=== PATIENT | female | born 1980 | race Caucasian/White ===

== ENCOUNTER 2016-12-28 16:52 | Observation (INO) ==
[2016-12-28] MEDS ORDERED: *HR* Morphine 2 MG/ML SYRINGE IVP ONE (17:15)
[2016-12-28] MEDS ORDERED: 0.9 % Sodium Chloride 1,000 ML IVC ONE (17:15)
[2016-12-28] MEDS ORDERED: Ondansetron 4 MG/2 ML VIAL IVP ONE ×2 (17:15→19:39)
--- NOTE | 2016-12-28 17:24 | Emergency Department Note ---
Disposition Clinical Impression: Pyelonephritis, Acute kidney injury, Renal colic on right side Abdominal pain Qualifiers: Abdominal location: right lower quadrant Qualified Code(s): R10.31 - Right lower quadrant pain Hematuria Qualifiers: Hematuria type: unspecified type Qualified Code(s): R31.9 - Hematuria, unspecified Disposition: Admitted As Inpatient Condition: Fair Referrals: NO,PCP [Primary Care Provider] - Forms: ED Satisfaction Letter, Work/School Release Time of Disposition: 18:46 General Adult HPI - General Chief complaint: ED Abdominal Pain Stated complaint: ABD Pain Time Seen by Provider: 12/28/16 17:15 Source: patient Mode of arrival: private vehicle Limitations: no limitations - History of Present Illness Pain Scale: 8 - Related Data Home Medications Medication Instructions Recorded Confirmed No Known Home Drugs 09/22/16 09/22/16 Allergies Allergy/AdvReac Type Severity Reaction Status Date / Time prednisone Allergy See Verified 09/22/16 01:17 Comments Past Medical History - Past Medical History Medical history: Reports: no medical history Surgical history: Reports: non-contributory Psychiatric history: Reports: no psych history 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 history: Reports: endometriosis, ectopic , bilateral tubal ligation : 7 Para: 2 Ab: 5 - Social History Smoking Status: Former smoker Smokeless Tobacco Status: No Alcohol use: Reports: none Drug use: Reports: none Physical Exam - General Limitations: no limitations General appearance: alert Course Vital Signs Temperature 99.2 F 12/28/16 16:54 Pulse Rate 98 12/28/16 16:54 Respiratory Rate 16 12/28/16 16:54 Blood Pressure 154/114 12/28/16 16:54 O2 Sat by Pulse Oximetry 100 12/28/16 16:54 Temperature 99.2 F 12/28/16 16:54 Pulse Rate 98 12/28/16 16:54 Respiratory Rate 16 12/28/16 16:54 Blood Pressure 154/114 12/28/16 16:54 O2 Sat by Pulse Oximetry 100 12/28/16 16:54 Oxygen Delivery Oxygen Delivery Room Air Medical Decision Making - Medical Records Medical records reviewed: Yes I reviewed the patient's medical records. - Lab Data Lab results reviewed: Yes I reviewed the patient's lab results. Result diagrams: 12/28/16 17:20 12/28/16 17:20 Lab Results 12/28/16 12/28/16 12/28/16 Range/Units 17:20 17:20 17:20 WBC 17.3 H (4.3-11.1) K/mcL RBC 4.68 (3.82-4.97) M/mcL Hgb 13.4 (11.5-15.4) g/dL Hct 40.4 (35.3-44.9) % MCV 86.3 (83.0-100.0) fL MCH 28.6 (28.0-33.3) pg MCHC 33.2 (31.6-35.5) g/dL RDW 13.7 (11.5-14.5) % Plt Count 282 (140-400) K/mcL MPV 11.0 (9.4-12.4) fL Immature Gran % 0.4 (0-4) % Seg Neutrophils % 77.7 % Lymphocytes % 14.6 % Monocytes % 6.8 % Eosinophils % 0.4 % Basophils % 0.1 % Neutrophils # 13.4 H (1.6-8.9) K/mcL Lymphocytes # 2.5 (0.6-4.6) K/mcL Monocytes # 1.2 (0.0-1.3) K/mcL Eosinophils # 0.1 (0.0-0.6) K/mcL Basophils # 0.0 (0.0-0.2) K/mcL PT (9.4-12.1) Seconds INR APTT (26.0-36.0) Seconds Sodium 139 (136-145) mEq/L Potassium 3.4 L (3.5-4.5) mEq/L Chloride 105 (98-109) mEq/L Carbon Dioxide 24 (19-29) mEq/L BUN 20 (7-20) mg/dL Creatinine 1.24 H (0.57-1.11) mg/dL Est GFR ( Amer) 60 (> 60) Est GFR (Non-Af Amer) 49 L (> 60) BUN/Creatinine Ratio 16 (6-26) Glucose 125 H (70-99) mg/dL Calculated Osmolality 292 (280-300) Lactic Acid (0.5-2.2) mmol/L Calcium 9.5 (8.6-10.8) mg/dL Total Bilirubin 0.7 (0.2-1.2) mg/dL Direct Bilirubin 0.3 (0.0-0.5) mg/dL Indirect Bilirubin 0.4 (0.0-1.2) mg/dL AST 28 (5-34) Units/L ALT 25 (0-55) Units/L Alkaline Phosphatase 82 (38-126) Units/L Troponin I (0-0.03) ng/mL Serum Total Protein 7.4 (6.0-8.3) g/dL Albumin 4.0 (3.5-5.0) g/dL Globulin 3.4 (2.4-3.5) g/dL Albumin/Globulin Ratio 1.2 (1.1-2.2) Amylase 59 (25-125) Units/L Lipase 16 (8-78) Units/L Urine Color Yellow (Yellow) Urine Clarity Clear (Clear) Urine pH 5.5 (5.0-8.0) pH Units Ur Specific [place] 1.010 (1.010-1.025) Urine Protein Negative (Neg-Trace) mg/dL Urine Glucose (UA) Normal (Normal) mg/dL Urine Ketones Negative (Negative) mg/dL Urine Blood Moderate H (Negative) Urine Nitrite Negative (Negative) Urine Bilirubin Negative (Negative) Urine Urobilinogen Normal (Normal) mg/dL Ur Leukocyte Esterase Negative (Negative) Urine Microscopic RBC 0-3 (0-3) per hpf Urine Microscopic WBC 5-15 H (0-3) per hpf Ur Squamous Epith Cells Many H (None-Few) per lpf Urine Bacteria None Seen (None-Few) per hpf Hyaline Casts None Seen (None-Few) per lpf Ur Culture Indicated? YES A (NO) Urine Test (Negative) 12/28/16 12/28/16 12/28/16 Range/Units 17:20 17:20 17:20 WBC (4.3-11.1) K/mcL RBC (3.82-4.97) M/mcL Hgb (11.5-15.4) g/dL Hct (35.3-44.9) % MCV (83.0-100.0) fL MCH (28.0-33.3) pg MCHC (31.6-35.5) g/dL RDW (11.5-14.5) % Plt Count (140-400) K/mcL MPV (9.4-12.4) fL Immature Gran % (0-4) % Seg Neutrophils % % Lymphocytes % % Monocytes % % Eosinophils % % Basophils % % Neutrophils # (1.6-8.9) K/mcL Lymphocytes # (0.6-4.6) K/mcL Monocytes # (0.0-1.3) K/mcL Eosinophils # (0.0-0.6) K/mcL Basophils # (0.0-0.2) K/mcL PT (9.4-12.1) Seconds INR APTT (26.0-36.0) Seconds Sodium (136-145) mEq/L Potassium (3.5-4.5) mEq/L Chloride (98-109) mEq/L Carbon Dioxide (19-29) mEq/L BUN (7-20) mg/dL Creatinine (0.57-1.11) mg/dL Est GFR ( Amer) (> 60) Est GFR (Non-Af Amer) (> 60) BUN/Creatinine Ratio (6-26) Glucose (70-99) mg/dL Calculated Osmolality (280-300) Lactic Acid 1.0 (0.5-2.2) mmol/L Calcium (8.6-10.8) mg/dL Total Bilirubin (0.2-1.2) mg/dL Direct Bilirubin (0.0-0.5) mg/dL Indirect Bilirubin (0.0-1.2) mg/dL AST (5-34) Units/L ALT (0-55) Units/L Alkaline Phosphatase (38-126) Units/L Troponin I 0.01 (0-0.03) ng/mL Serum Total Protein (6.0-8.3) g/dL Albumin (3.5-5.0) g/dL Globulin (2.4-3.5) g/dL Albumin/Globulin Ratio (1.1-2.2) Amylase (25-125) Units/L Lipase (8-78) Units/L Urine Color (Yellow) Urine Clarity (Clear) Urine pH (5.0-8.0) pH Units Ur Specific [place] (1.010-1.025) Urine Protein (Neg-Trace) mg/dL Urine Glucose (UA) (Normal) mg/dL Urine Ketones (Negative) mg/dL Urine Blood (Negative) Urine Nitrite (Negative) Urine Bilirubin (Negative) Urine Urobilinogen (Normal) mg/dL Ur Leukocyte Esterase (Negative) Urine Microscopic RBC (0-3) per hpf Urine Microscopic WBC (0-3) per hpf Ur Squamous Epith Cells (None-Few) per lpf Urine Bacteria (None-Few) per hpf Hyaline Casts (None-Few) per lpf Ur Culture Indicated? (NO) Urine Test Negative (Negative) 12/28/16 Range/Units 17:31 WBC (4.3-11.1) K/mcL RBC (3.82-4.97) M/mcL Hgb (11.5-15.4) g/dL Hct (35.3-44.9) % MCV (83.0-100.0) fL MCH (28.0-33.3) pg MCHC (31.6-35.5) g/dL RDW (11.5-14.5) % Plt Count (140-400) K/mcL MPV (9.4-12.4) fL Immature Gran % (0-4) % Seg Neutrophils % % Lymphocytes % % Monocytes % % Eosinophils % % Basophils % % Neutrophils # (1.6-8.9) K/mcL Lymphocytes # (0.6-4.6) K/mcL Monocytes # (0.0-1.3) K/mcL Eosinophils # (0.0-0.6) K/mcL Basophils # (0.0-0.2) K/mcL PT 11.5 (9.4-12.1) Seconds INR 1.1 APTT 30.2 (26.0-36.0) Seconds Sodium (136-145) mEq/L Potassium (3.5-4.5) mEq/L Chloride (98-109) mEq/L Carbon Dioxide (19-29) mEq/L BUN (7-20) mg/dL Creatinine (0.57-1.11) mg/dL Est GFR ( Amer) (> 60) Est GFR (Non-Af Amer) (> 60) BUN/Creatinine Ratio (6-26) Glucose (70-99) mg/dL Calculated Osmolality (280-300) Lactic Acid (0.5-2.2) mmol/L Calcium (8.6-10.8) mg/dL Total Bilirubin (0.2-1.2) mg/dL Direct Bilirubin (0.0-0.5) mg/dL Indirect Bilirubin (0.0-1.2) mg/dL AST (5-34) Units/L ALT (0-55) Units/L Alkaline Phosphatase (38-126) Units/L Troponin I (0-0.03) ng/mL Serum Total Protein (6.0-8.3) g/dL Albumin (3.5-5.0) g/dL Globulin (2.4-3.5) g/dL Albumin/Globulin Ratio (1.1-2.2) Amylase (25-125) Units/L Lipase (8-78) Units/L Urine Color (Yellow) Urine Clarity (Clear) Urine pH (5.0-8.0) pH Units Ur Specific [place] (1.010-1.025) Urine Protein (Neg-Trace) mg/dL Urine Glucose (UA) (Normal) mg/dL Urine Ketones (Negative) mg/dL Urine Blood (Negative) Urine Nitrite (Negative) Urine Bilirubin (Negative) Urine Urobilinogen (Normal) mg/dL Ur Leukocyte Esterase (Negative) Urine Microscopic RBC (0-3) per hpf Urine Microscopic WBC (0-3) per hpf Ur Squamous Epith Cells (None-Few) per lpf Urine Bacteria (None-Few) per hpf Hyaline Casts (None-Few) per lpf Ur Culture Indicated? (NO) Urine Test (Negative) - Radiology Data Radiology results reviewed: Yes I reviewed the patient's radiology results. Attestation Statement - Attestation Attestation: I examined this patient and my medical decision-making was reviewed with the Resident Physician. I agree with the documented findings, disposition and treatment plan as described except to the extent set forth below. Face to face time provided Patient complains of right lower abdominal pain. Mildly tender on exam without guarding or rebound. CT scan abd/pelvis ordered by the mid-level provider 18:45: Discussed CT and lab findings with Dr. Gore, urology on-call. He recommended antibiotics, IV fluids and admission in case this represents early pyelonephritis. accepts
--- NOTE | 2016-12-28 17:24 | Emergency Department Note ---
Disposition Clinical Impression: Abdominal pain Disposition: Still a Patient Condition: Fair Referrals: NO,PCP [Primary Care Provider] - Forms: Work/School Release, ED Satisfaction Letter Time of Disposition: 17:30 Abdominal Pain HPI - General Chief Complaint: ED Abdominal Pain Stated Complaint: ABD Pain Time Seen by Provider: 12/28/16 17:15 Source: patient Mode of arrival: private vehicle Limitations: no limitations Nursing Notes Reviewed: Yes Vital Signs Reviewed: Yes - History of Present Illness HPI Narrative: 36-year-old female patient presents to the emergency department with abdominal pain. Patient states that she has had intermittent abdominal pain for the last 12 hours. She denies any fever, chills or vomiting, however states that she has had some nausea. She denies any constipation. She denies any urinary complaints. Her abdominal pain is diffuse. She denies any chest pain, shortness of breath, dizziness, lightheadedness. She denies any vaginal discharge or bleeding. Her only known drug allergies to prednisone. Her surgical history consists of only gallbladder removal. She has no additional complaints or concerns. Pt Subjective Complaint: abdominal pain Onset (ago): hour(s) (12) Location: diffuse Pain Severity: severe Pain Scale: 8 Radiation: none Migration to: no migration Improves with: nothing Worsens with: nothing Associated symptoms: Reports: denies other symptoms, nausea. Denies: vomiting, diarrhea, fever, chills, constipation, dysuria, hematemesis - Related Data Home Medications Medication Instructions Recorded Confirmed No Known Home Drugs 09/22/16 09/22/16 Allergies Allergy/AdvReac Type Severity Reaction Status Date / Time prednisone Allergy See Verified 09/22/16 01:17 Comments All systems ED: reviewed and negative except as stated. Constitutional: Denies: fever, chills Cardiovascular: Denies: chest pain Respiratory: Denies: cough, dyspnea, wheezes Gastrointestinal: Reports: abdominal pain, nausea. Denies: vomiting, diarrhea, constipation, hematemesis, melena Musculoskeletal: Reports: back pain. 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 history: Reports: endometriosis, ectopic , bilateral tubal ligation : 7 Para: 2 A: 5 Psychiatric history: Reports: no psych history - Social History Smoking status: Former smoker Alcohol use: Reports: none Drug use: Reports: none Physical Exam - General Limitations: no limitations General appearance: alert, in no apparent distress - Head Head exam: atraumatic, normocephalic, normal inspection - Eye Eye exam: Present: normal appearance, PERRL - Neck Neck exam: Present: normal inspection, full ROM, trachea midline - Chest Chest inspection: Present: normal inspection, symmetric chest wall rise - Respiratory Respiratory exam: Present: normal lung sounds bilaterally. Absent: respiratory distress - Cardiovascular Cardiovascular exam: Present: regular rate, normal rhythm, normal heart sounds - Abdominal Exam Abdominal exam: Present: soft, tenderness, guarding, normal bowel sounds, tenderness at McBurney's Point. Absent: distention, rebound, rigidity Abdominal tenderness: Present: RLQ - Extremities Exam Extremities exam: Present: normal inspection, full ROM. Absent: tenderness, pedal edema - Expanded Lower Extremity Exam Hip/Pelvis exam: Present: normal inspection, full ROM Upper leg exam: Present: normal inspection, full ROM - Back Exam Back exam: Present: normal inspection, full ROM. Absent: tenderness - Neurological Exam Neurological exam: Present: alert, oriented X3 - Psychiatric Psychiatric exam: Present: normal affect, normal mood - Skin Skin exam: Present: warm, dry, intact, normal color Course Course Narrative: Patient's labs are pending. CT of the abdomen and pelvis pending. Urinalysis pending. Patient signed out to Jameson Casas PA-C at 1800. Vital Signs Temperature 99.2 F 12/28/16 16:54 Pulse Rate 98 12/28/16 16:54 Respiratory Rate 16 12/28/16 16:54 Blood Pressure 154/114 12/28/16 16:54 O2 Sat by Pulse Oximetry 100 12/28/16 16:54 Temperature 99.2 F 12/28/16 16:54 Pulse Rate 98 12/28/16 16:54 Respiratory Rate 16 12/28/16 16:54 Blood Pressure 154/114 12/28/16 16:54 O2 Sat by Pulse Oximetry 100 12/28/16 16:54 Oxygen Delivery Oxygen Delivery Room Air
[2016-12-28 17:31] LABS: Basophils % 0.1 %; Eosinophils # 0.1 K/mcL (0.0-0.6); Eosinophils % 0.4 %; Hematocrit 40.4 % (35.3-44.9); Hemoglobin 13.4 g/dL (11.5-15.4); Immature Granulocytes % 0.4 % (0-4); Lymphocytes # 2.5 K/mcL (0.6-4.6); Lymphocytes % 14.6 %; Mean Corpuscular HGB Conc 33.2 g/dL (31.6-35.5); Mean Corpuscular Hemoglobin 28.6 pg (28.0-33.3); Mean Corpuscular Volume 86.3 fL (83.0-100.0); Monocytes # 1.2 K/mcL (0.0-1.3); Monocytes % 6.8 %; Neutrophils # 13.4 K/mcL (1.6-8.9); Platelet Count 282 K/mcL (140-400); Red Blood Count 4.68 M/mcL (3.82-4.97); Red Cell Distribution Width 13.7 % (11.5-14.5); Segmented Neutrophils % 77.7 %
[2016-12-28 17:34] LABS: Bilirubin,Urine Negative (Negative); Blood,Urine Moderate (Negative); Clarity,Urine Clear (Clear); Color,Urine Yellow (Yellow); Glucose,Urine (UA) Normal (Normal); Ketones,Urine Negative (Negative); Leukocyte Esterase,Urine Negative (Negative); Nitrite,Urine Negative (Negative); PH,Urine 5.5 pH Units (5.0-8.0); Protein,Urine Negative (Neg-Trace); Urobilinogen,Urine Normal (Normal)
[2016-12-28 17:37] LABS: Bacteria,Urine None Seen per hpf (None-Few); Hyaline Casts,Urine None Seen per lpf (None-Few); RBC,Urine 0-3 per hpf (0-3); Squamous Epithelial Cell,Urine Many per lpf (None-Few)
[2016-12-28 17:43] LABS: INR 1.1; Prothrombin Time 11.5 Seconds (9.4-12.1)
[2016-12-28 17:46] LABS: Activated Partial Thrombo Time 30.2 Seconds (26.0-36.0)
[2016-12-28 17:49] LABS: Albumin/Globulin Ratio 1.2 (1.1-2.2); Bilirubin,Direct 0.3 mg/dL (0.0-0.5); Bilirubin,Indirect 0.4 mg/dL (0.0-1.2); Bilirubin,Total 0.7 mg/dL (0.2-1.2); Calcium 9.5 mg/dL (8.6-10.8); Globulin 3.4 g/dL (2.4-3.5); Potassium 3.4 mEq/L (3.5-4.5); Total Protein 7.4 g/dL (6.0-8.3)
[2016-12-28] MEDS ORDERED: *HR* HYDROmorphone (PF) 1 MG/ML SYRINGE IVP ONE (18:45)
[2016-12-28] MEDS ORDERED: Naloxone 0.4 MG/ML INJ IVP PRN (19:07)
--- NOTE | 2016-12-28 19:29 | Internal Med History&Physical ---
Date of Encounter: 12/28/16 Time of Encounter: 19:15 Assessment and Plan (1) Pyelonephritis Current visit: Yes Status: Acute Patient without dysuria, however CT shows perinephric stranding bilaterally, suggesting pyelo rather than passed stone. ED discussed case with urology s iron worker who recommended antibiotic treatment for pyelonephritis and monitoring for improvement. - Continue IV ceftriaxone, started in ED - Pain control with percocet PRN and PRN IV dilaudid - IV fluid resuscitation - Urine and blood cultures pending (2) Acute kidney injury Current visit: Yes Status: Acute Mild, Creatinine 1.24, up from baseline of 0.87. Likely prerenal etiology secondary to dehydration, vomiting, etc - IV fluids initiated in ED, will continue - Check creatinine in AM - avoid nephrotoxic agents. Internal Medicine - H&P: HPI Chief complaint: Right flank pain, vomiting Admitted From: Emergency Dept Plans for Post Hospital Care: Home History of present illness: Ms. Nagy is a 36 year old female without significant medical history who presents with right sided flank pain and vomiting which began this morning around 0430. She states that she was awake because of a migraine and then had sudden right-sided flank pain and vomiting. She was sweaty but did not take her temperature. Throughout the day her pain worsened and she continued to vomit so she came to the ED for further evaluation. In the ED a CT was performed which showed bilateral perinephric stranding (right worse than left). She denies dysuria, urinary frequency or urgency. She has not had renal stones before. She denies chest pain or shortness of breath. She does endorse some pain relief from the dilaudid she received in the ED but continues to have significant right -sided flank pain radiating around to the right groin. Past Med Surg Social Fam HX - Past Medical History Source: patient Medical history: no medical history Psychiatric history: no psych history - Past Surgical History Surgical History: cholecystectomy, other (mulitple knee surgeries (right), laparoscopy for ectopic and endometriosis, section. ) - Social History Smoking Status: Former smoker Smokeless Tobacco Status: No Alcohol use: none Drug use: marijuana (smokes marijana several times per month) Occupational status: unemployed Internal Medicine - H&P: Meds No Known Home Drugs 09/22/16 [History] Allergies prednisone Allergy (Verified 09/22/16 01:17) See Comments "heart goes crazy" All Systems PM: A 10-system review of systems was performed and is negative for pertinent findings except as documented above in the HPI. - Constitutional Constitutional: chills, excessive sweating, no weight gain, no weight loss - Cardiovascular Cardiovascular ROS IM: no diaphoresis - Respiratory Respiratory: no cough, no dyspnea - Gastrointestinal Gastrointestinal: nausea, vomiting, no diarrhea - Neurological Neurological ROS: no abnormal speech, no confusion, no memory loss - Psychiatric Psychiatric: panic attacks - Hematologic/Lymphatic Hematologic/Lymphatic: no easy bruising - Constitutional Vitals: Temp Pulse Resp BP Pulse Ox 99.2 F 98 16 154/114 100 12/28/16 16:54 12/28/16 16:54 12/28/16 16:54 12/28/16 16:54 12/28/16 16:54 General appearance: Present: A&O X 3, no acute distress - Head Head exam: Present: atraumatic - Eye Eye exam: Present: EOMI, sclera anicteric - ENT ENT exam: Present: mucous membranes moist - Neck Neck exam general surgery: Present: supple - Respiratory Respiratory exam: Present: CTAB - Cardiovascular Cardiovascular exam: Present: RRR. Absent: diastolic murmur, gallop, rubs, systolic murmur - GI/Abdominal GI/Abdominal exam: Present: normal bowel sounds, soft. Absent: distended, tenderness - Extremities Exam Extremities exam: Absent: pedal edema - Back Exam Back exam: Present: CVA tenderness (R). Absent: CVA tenderness (L) - Neurological Exam Neurological exam: Present: no focal deficits - Psychiatric Psychiatric exam: Present: normal affect, normal mood - Skin Skin exam: Absent: rash Internal Med - H&P Results - Labs CBC & Chem 7: 12/28/16 17:20 12/28/16 17:20 - Diagnostic Studies CT scan - abdomen Additional comments: cc: David Ferreira; Armand Man; PCP NO; ~ EXAMINATION: CT OF THE ABDOMEN AND PELVIS WITHOUT CONTRAST 12/28/2016 6:19 pm TECHNIQUE: CT of the abdomen and pelvis was performed without the administration of intravenous contrast. Multiplanar reformatted images are provided for review. Dose modulation, iterative reconstruction, and/or weight based adjustment of the mA/kV was utilized to reduce the radiation dose to as low as reasonably achievable. COMPARISON: None HISTORY: abdominal pain Acute right lower quadrant pain, low back pain FINDINGS: Lower Chest: Limited imaging of the lung bases is grossly unremarkable in appearance. No free air noted within the abdomen or pelvis. Organs: Patient is status post cholecystectomy. Limited noncontrast imaging of the liver, spleen, adrenal glands and pancreas are unremarkable in appearance. There is perinephric stranding noted on the right kidney and to a lesser degree the left kidney. No evidence of obstructive uropathy is noted. No definite stone noted along the visualized or expected course of the ureters. GI/Bowel: Stomach and the small bowel are grossly unremarkable in appearance. The appendix is visualized and appears normal. Noncontrast imaging of the colon is unremarkable in appearance. Pelvis: A 16 mm cystic structure noted in the left side of the labia majora, smaller cystic structure noted on the right findings likely related to benign cyst. The uterus, ovaries and urinary bladder are unremarkable in appearance. Trace amount of fluid noted within the pelvis likely physiologic in a young female. Peritoneum/Retroperitoneum: The aorta is normal in caliber. Scattered small lymph nodes within the retroperitoneum are likely reactive. Bones/Soft Tissues: There is no acute osseous abnormality. Moderate degenerative changes noted at L5-S1. CT/CT abd pelvis wo no iv no oral IMPRESSION: Perinephric stranding involving the kidneys, right greater than left. There is no evidence of obstructive uropathy. Findings are nonspecific and may be related to recently passed stone although acute infection such as pyelonephritis is within the differential and limited in its evaluation on noncontrast images. D/ / 12/28/2016 18:31:25 Km Slater MD / keri Interpreting Provider: Km Slater MD
[2016-12-28] MEDS: 0.9 % Sodium Chloride 1,000 ML IVC SCH (21:40)
[2016-12-28] MEDS: *HR* HYDROcodone/Acet 5/325 mg TABLET PO PRN (21:40)
[2016-12-29] MEDS: *HR* HYDROmorphone (PF) 1 MG/ML SYRINGE IVP PRN ×3 (03:51→13:54)
[2016-12-29] MEDS: Ondansetron 4 MG/2 ML VIAL IVP PRN ×3 (03:52→18:14)
[2016-12-29 05:09] LABS: Hematocrit 33.9 % (35.3-44.9); Mean Corpuscular HGB Conc 32.7 g/dL (31.6-35.5); Mean Corpuscular Hemoglobin 29.1 pg (28.0-33.3); Mean Corpuscular Volume 88.7 fL (83.0-100.0); Mean Platelet Volume 11.4 fL (9.4-12.4); Platelet Count 232 K/mcL (140-400); Red Blood Count 3.82 M/mcL (3.82-4.97)
[2016-12-29 05:17] LABS: Hemoglobin 11.1 g/dL (11.5-15.4)
[2016-12-29] MEDS: 0.9 % Sodium Chloride 1,000 ML IVC SCH ×3 (05:18→23:34)
[2016-12-29 05:32] LABS: BUN/Creatinine Ratio 17 (6-26); Blood Urea Nitrogen 17 mg/dL (7-20); Calcium 8.5 mg/dL (8.6-10.8); Carbon Dioxide 29 mEq/L (19-29); Chloride 109 mEq/L (98-109); Glucose 80 mg/dL (70-99); Osmolality,Calculated 293 (280-300); Potassium 3.3 mEq/L (3.5-4.5); Sodium 141 mEq/L (136-145); eGFR For African Americans > 60 (> 60); eGFR For Non-African Americans > 60 (> 60)
[2016-12-29] MEDS: *HR* HYDROcodone/Acet 5/325 mg TABLET PO PRN ×3 (07:46→20:12)
--- NOTE | 2016-12-29 09:05 | Urology - Consult Note ---
Date of Encounter: 12/29/16 Time of Encounter: 09:03 - Assessment and Plan (1) Hematuria Current Visit: Yes Status: Acute Assessment and plan: At this time I believe the patient could have pyelonephritis. Her CT scan does not reveal any obvious obstructing lesion or stone. At this time recommend to wait for culture results as well as continue broad-spectrum antibiotic. Qualifiers: Hematuria type: asymptomatic microscopic Qualified Code(s): R31.21 - Asymptomatic microscopic hematuria (2) Pyelonephritis Current Visit: Yes Status: Acute (3) Renal colic on right side Current Visit: Yes Status: Acute Assessment and plan: Likely secondary to pyelonephritis. Urology CN:HPI Consult date: 12/29/16 Reason for consult Urology: Other (perinephric stranding) Requesting physician: Armand Man History of present illness: Deja is a 36 y/o female with history of recent trip to the ED secondary to severe right-sided abdominal/flank pain. In was 10 out of [address] scan was done which revealed bilateral perinephric stranding without any obvious hydronephrosis or obstructing ureteral stone. Patient states her pain is slightly improved. Down to 7 or 8 out of 10. Patient did have elevated WBC count upon arrival to the hospital 17,000. This has decreased to 13,000 overnight. Denies any fevers. Urinalysis showed blood without nitrites. Past Med Surg Social Fam HX - Past Medical History Medical history: no medical history Psychiatric history: anxiety - Past Surgical History Surgical History: , cholecystectomy, orthopedic, other, other - Social History Smoking Status: Current every day smoker Packs per day: 1 Smokeless Tobacco Status: No Alcohol use: none Drug use: marijuana - Family History Mother Living Status: Still Living Hx Family Autoimmune Disorders: Yes (FIBROMYALGIA) Father Living Status: Still Living Hx Family Cardiac Disorders: Yes (HTN) Hx Family Endocrine Disorder: Yes (DM) Medications and Allergies No Known Home Drugs 09/22/16 [History] Allergies prednisone Allergy (Verified 09/22/16 01:17) See Comments "heart goes crazy" Review of Systems - Constitutional no fever(s) - EENT Nose, mouth and throat: no dizziness - Cardiovascular no chest pain - Respiratory no cough - Gastrointestinal abdominal pain - Musculoskeletal back pain - Integumentary no erythema - Neurological no confusion - Psychiatric no anxiety Exam Initial Vital Signs Temp Pulse Resp BP Pulse Ox 99.2 F 98 16 154/114 100 12/28/16 16:54 12/28/16 16:54 12/28/16 16:54 12/28/16 16:54 12/28/16 16:54 - General physical appearance Present: well developed - Eyes Present: PERRL - ENT Present: normal nares - Neck Present: no masses - Respiratory Present: normal respiratory effort - Cardiovascular Cardiovascular exam IM: RRR - Abdomen Abdomen: Present: soft - Integumentary Present: no rash - Neurologic Present: normal coordination Urology Results - Labs 12/29/16 03:46 12/29/16 03:46 Abnormal lab results WBC 12.5 K/mcL (4.3-11.1) H 12/29/16 03:46 Hgb 11.1 g/dL (11.5-15.4) L D 12/29/16 03:46 Hct 33.9 % (35.3-44.9) L 12/29/16 03:46 Neutrophils # 13.4 K/mcL (1.6-8.9) H 12/28/16 17:20 Potassium 3.3 mEq/L (3.5-4.5) L 12/29/16 03:46 Calcium 8.5 mg/dL (8.6-10.8) L 12/29/16 03:46 Urine Blood Moderate (Negative) H 12/28/16 17:20 Urine Microscopic WBC 5-15 per hpf (0-3) H 12/28/16 17:20 Ur Squamous Epith Cells Many per lpf (None-Few) H 12/28/16 17:20 Ur Culture Indicated? YES (NO) A 12/28/16 17:20 Diabetes panel 12/29/16 Range/Units 03:46 Sodium 141 (136-145) mEq/L Potassium 3.3 L (3.5-4.5) mEq/L Chloride 109 (98-109) mEq/L Carbon Dioxide 29 (19-29) mEq/L BUN 17 (7-20) mg/dL Creatinine 1.01 (0.57-1.11) mg/dL Glucose 80 (70-99) mg/dL Calcium 8.5 L (8.6-10.8) mg/dL Calcium panel 12/29/16 Range/Units 03:46 Calcium 8.5 L (8.6-10.8) mg/dL Pituitary panel 12/29/16 Range/Units 03:46 Sodium 141 (136-145) mEq/L Potassium 3.3 L (3.5-4.5) mEq/L Chloride 109 (98-109) mEq/L Carbon Dioxide 29 (19-29) mEq/L BUN 17 (7-20) mg/dL Creatinine 1.01 (0.57-1.11) mg/dL Glucose 80 (70-99) mg/dL Calcium 8.5 L (8.6-10.8) mg/dL Adrenal panel 12/29/16 Range/Units 03:46 Sodium 141 (136-145) mEq/L Potassium 3.3 L (3.5-4.5) mEq/L Chloride 109 (98-109) mEq/L Carbon Dioxide 29 (19-29) mEq/L BUN 17 (7-20) mg/dL Creatinine 1.01 (0.57-1.11) mg/dL Glucose 80 (70-99) mg/dL Calcium 8.5 L (8.6-10.8) mg/dL All other labs normal. - Imaging CT scan - abdomen: image reviewed CT scan - pelvis: image reviewed (Personally reviewed by me without any additional findings) Consult Discharge Plan - Plan Referrals: NO,PCP [Primary Care Provider] -
--- NOTE | 2016-12-29 15:23 | Internal Med Progress Note ---
Date of Encounter: 12/29/16 Time of Encounter: 13:40 - Assessment and plan (1) Pyelonephritis Current Visit: Yes Status: Acute Assessment and plan: Pt reports sudden onset R flank pain, nausea, abd pain. CT abd pelvis shows perinephric standing involving the kidneys, R>L. No obstructive uropathy, differentials included recently passed stone and acue infection such as pyelonephritis. Urine culture is negative. Continue IV antibiotics Continue IVF hydration Pain control Urology is following, appreciate their recommendations and consultation. (2) Hematuria Current Visit: Yes Status: Acute Assessment and plan: Patient presented to the emergency department with sudden onset flank pain, nausea, hematuria. UA showed moderate amount of blood. Urine culture is negative. Continue IV antibiotics Continue IV hydration Pain control Urology is following Qualifiers: Hematuria type: asymptomatic microscopic Qualified Code(s): R31.21 - Asymptomatic microscopic hematuria (3) Acute kidney injury Current Visit: Yes Status: Resolved Assessment and plan: Creatinine has returned to normal. We will continue to monitor. - Time Spent With Patient less than 15 minutes - Subjective Interval history: Patient is resting quietly in room with and young son at bedside. Patient appears to be in pain and is still requiring IV pain medication frequently. She reports sudden onset flank pain, nausea yesterday morning at 9 AM. She denied any urinary symptoms at all in the last few days. She does have right CVA tenderness. She says she still has a little bit of nausea, but it is improved. She denies chest pain, shortness of breath, headache, dizziness. Urine culture has returned. There are no pathogens isolated. Urology is following. - Constitutional Vitals: Temp Pulse Resp BP Pulse Ox 97.6 F 77 14 133/83 95 12/29/16 15:03 12/29/16 15:03 12/29/16 15:03 12/29/16 15:03 12/29/16 15:03 General appearance: Present: cooperative, A&O X 3, pleasant, no acute distress, answers questions appropriately - Head Head exam: Present: normal inspection - Eye Eye exam: Present: normal appearance, conjuntiva pink - ENT ENT exam: Present: mucous membranes moist, normal exam, normal external ear exam - Respiratory Respiratory exam: Present: CTAB. Absent: decreased breath sounds, rales, respiratory distress, rhonchi, stridor, wheezes - Cardiovascular Cardiovascular exam: Present: RRR, +S1, +S2. Absent: diastolic murmur, systolic murmur - GI/Abdominal GI/Abdominal exam: Present: normal bowel sounds, tenderness - Extremities Exam Extremities exam: Present: warm, radial pulses palpable and symetrical. Absent : pedal edema, tenderness - Neurological Exam Neurological exam: Present: alert, oriented X3, no focal deficits. Absent: facial droop, speech deficit Internal Medicine: Result - Labs CBC & Chem 7: 12/29/16 03:46 12/29/16 03:46 Labs: Short CBC 12/29/16 Range/Units 03:46 WBC 12.5 H (4.3-11.1) K/mcL Hgb 11.1 L D (11.5-15.4) g/dL Hct 33.9 L (35.3-44.9) % Plt Count 232 (140-400) K/mcL BMP 12/29/16 03:46 Sodium 141 Potassium 3.3 L Chloride 109 Carbon Dioxide 29 BUN 17 Creatinine 1.01 Glucose 80 Calcium 8.5 L - ABG Interpretation ABG results: PT/INR, D-dimer PT 11.5 Seconds (9.4-12.1) 12/28/16 17:31 - VTE Documentation of Mechanical Device: Intermittent pneumatic compression device Consult Discharge Plan - Plan Referrals: NO,PCP [Primary Care Provider] -
[2016-12-29] MEDS ORDERED: *HR* HYDROmorphone (PF) 1 MG/ML SYRINGE IVP PRN (17:24)
[2016-12-29] MEDS ORDERED: *HR* LORazepam 0.5 MG TABLET PO ONE (22:43)
[2016-12-29] MEDS ORDERED: Ondansetron 4 MG/2 ML VIAL IVP ONE (23:22)
[2016-12-30] MEDS: *HR* HYDROcodone/Acet 5/325 mg TABLET PO PRN ×3 (00:11→18:05)
[2016-12-30 05:56] LABS: Basophils % 0.1 %; Eosinophils # 0.1 K/mcL (0.0-0.6); Hematocrit 31.6 % (35.3-44.9); Hemoglobin 9.9 g/dL (11.5-15.4); Immature Granulocytes % 0.4 % (0-4); Lymphocytes # 2.9 K/mcL (0.6-4.6); Lymphocytes % 26.6 %; Mean Corpuscular HGB Conc 31.3 g/dL (31.6-35.5); Mean Corpuscular Volume 89.5 fL (83.0-100.0); Mean Platelet Volume 11.3 fL (9.4-12.4); Monocytes # 0.8 K/mcL (0.0-1.3); Neutrophils # 7.1 K/mcL (1.6-8.9); Platelet Count 203 K/mcL (140-400); Red Blood Count 3.53 M/mcL (3.82-4.97); Red Cell Distribution Width 13.9 % (11.5-14.5); Segmented Neutrophils % 64.9 %
[2016-12-30 06:19] LABS: BUN/Creatinine Ratio 14 (6-26); Blood Urea Nitrogen 11 mg/dL (7-20); Calcium 8.1 mg/dL (8.6-10.8); Carbon Dioxide 26 mEq/L (19-29); Chloride 111 mEq/L (98-109); Glucose 90 mg/dL (70-99); Osmolality,Calculated 289 (280-300); Potassium 4.1 mEq/L (3.5-4.5); Sodium 140 mEq/L (136-145); eGFR For African Americans > 60 (> 60); eGFR For Non-African Americans > 60 (> 60)
[2016-12-30] MEDS: Ondansetron 4 MG/2 ML VIAL IVP PRN (07:39)
[2016-12-30] MEDS: 0.9 % Sodium Chloride 1,000 ML IVC SCH (07:42)
[2016-12-30] MEDS ORDERED: Ketorolac 30 MG/ML VIAL IVP PRN (08:42)
[2016-12-30] MEDS: *HR* HYDROmorphone (PF) 1 MG/ML SYRINGE IVP PRN ×3 (10:40→20:13)
--- NOTE | 2016-12-30 15:38 | Internal Med Progress Note ---
Date of Encounter: 12/30/16 Time of Encounter: 08:25 - Assessment and plan (1) Pyelonephritis Current Visit: Yes Status: Acute Assessment and plan: Urine culture is negative. Patient states that back pain has improved some today. Nausea is slightly better. CT abd pelvis shows perinephric standing involving the kidneys, R>L. No obstructive uropathy, differentials included recently passed stone and acue infection such as pyelonephritis. Urology consult for today is still pending. Continue IV antibiotics Continue IVF hydration Pain control Urology is following, appreciate their recommendations and consultation. (2) Hematuria Current Visit: Yes Status: Acute Assessment and plan: Continue IV antibiotics Continue IV hydration Pain control Urology is following Qualifiers: Hematuria type: asymptomatic microscopic Qualified Code(s): R31.21 - Asymptomatic microscopic hematuria (3) Acute kidney injury Current Visit: Yes Status: Resolved Assessment and plan: Resolved. Creatinine is 0.80 GFR is greater than 60. - Time Spent With Patient less than 15 minutes - Subjective Interval history: Patient was seen and assessed this morning at approximately 8:25 AM. She says that she is not feeling any better at all. Her nausea has pretty much resolved , she states that back pain has improved some, now patient complains of generalized body aches and sore throat. Patient has been sleeping the entire day. Blood cultures are negative. Urine culture is negative. We have added a throat culture, viral panel, and a rapid strep. At this time urology consultation is still pending for the day. - Constitutional Vitals: Temp Pulse Resp BP Pulse Ox 98.1 F 64 16 143/91 99 12/30/16 11:46 12/30/16 11:46 12/30/16 11:46 12/30/16 11:46 12/30/16 11:46 General appearance: Present: cooperative, A&O X 3, pleasant, no acute distress, answers questions appropriately - Head Head exam: Present: normal inspection - Eye Eye exam: Present: normal appearance, conjuntiva pink - ENT ENT exam: Present: mucous membranes moist, normal exam, normal external ear exam , normal oropharynx - Neck Neck exam general surgery: Absent: lymphadenopathy, tenderness, thyromegaly Additional comments: Anterior-posterior cervical lymphadenopathy. Patient does state that the area is tender to palpation. - Respiratory Respiratory exam: Present: CTAB. Absent: chest wall tenderness, rales, respiratory distress, rhonchi, wheezes - Cardiovascular Cardiovascular exam: Present: RRR, +S1, +S2. Absent: diastolic murmur, systolic murmur - GI/Abdominal GI/Abdominal exam: Present: normal bowel sounds, soft. Absent: hepatomegaly, tenderness - Extremities Exam Extremities exam: Present: normal capillary refill, warm, radial pulses palpable and symetrical. Absent: pedal edema, tenderness - Neurological Exam Neurological exam: Present: alert, oriented X3, no focal deficits. Absent: facial droop, speech deficit Internal Medicine: Result - Labs CBC & Chem 7: 12/30/16 04:34 12/30/16 04:34 Labs: Short CBC 12/30/16 Range/Units 04:34 WBC 10.9 (4.3-11.1) K/mcL Hgb 9.9 L (11.5-15.4) g/dL Hct 31.6 L (35.3-44.9) % Plt Count 203 (140-400) K/mcL Neutrophils # 7.1 (1.6-8.9) K/mcL BMP 12/30/16 04:34 Sodium 140 Potassium 4.1 Chloride 111 H Carbon Dioxide 26 BUN 11 Creatinine 0.80 Glucose 90 Calcium 8.1 L - ABG Interpretation ABG results: PT/INR, D-dimer PT 11.5 Seconds (9.4-12.1) 12/28/16 17:31 - VTE Documentation of Mechanical Device: Graduated compression elastic hosiery Consult Discharge Plan - Plan Referrals: NO,PCP [Primary Care Provider] -
[2016-12-31] MEDS: Ondansetron 4 MG/2 ML VIAL IVP PRN ×3 (02:14→21:06)
[2016-12-31] MEDS: *HR* HYDROmorphone (PF) 1 MG/ML SYRINGE IVP PRN ×5 (02:14→21:10)
[2016-12-31 05:32] LABS: Basophils % 0.2 %; Eosinophils # 0.1 K/mcL (0.0-0.6); Eosinophils % 0.9 %; Hematocrit 31.2 % (35.3-44.9); Hemoglobin 10.3 g/dL (11.5-15.4); Immature Granulocytes % 0.5 % (0-4); Lymphocytes # 2.6 K/mcL (0.6-4.6); Lymphocytes % 20.9 %; Mean Corpuscular Hemoglobin 29.3 pg (28.0-33.3); Mean Corpuscular Volume 88.9 fL (83.0-100.0); Mean Platelet Volume 11.4 fL (9.4-12.4); Monocytes # 0.8 K/mcL (0.0-1.3); Monocytes % 6.2 %; Platelet Count 195 K/mcL (140-400); Red Blood Count 3.51 M/mcL (3.82-4.97); Red Cell Distribution Width 13.4 % (11.5-14.5); Segmented Neutrophils % 71.3 %
[2016-12-31 05:41] LABS: BUN/Creatinine Ratio 13 (6-26); Blood Urea Nitrogen 10 mg/dL (7-20); Calcium 8.3 mg/dL (8.6-10.8); Carbon Dioxide 27 mEq/L (19-29); Chloride 108 mEq/L (98-109); Glucose 131 mg/dL (70-99); Osmolality,Calculated 285 (280-300); Potassium 3.7 mEq/L (3.5-4.5); Sodium 137 mEq/L (136-145); eGFR For African Americans > 60 (> 60); eGFR For Non-African Americans > 60 (> 60)
--- NOTE | 2016-12-31 07:04 | Urology Progress Note ---
Date of Encounter: 12/31/16 Time of Encounter: 07:02 - Assessment and Plan (1) Hematuria Current Visit: Yes Status: Acute Qualifiers: Hematuria type: asymptomatic microscopic Qualified Code(s): R31.21 - Asymptomatic microscopic hematuria (2) Pyelonephritis Current Visit: Yes Status: Acute (3) Renal colic on right side Current Visit: Yes Status: Acute (4) Abdominal pain Current Visit: Yes Status: Acute Assessment and plan: will get ct a/p today. unsure of cause at this time. Qualifiers: Qualified Code(s): R10.31 - Right lower quadrant pain Progress Note Narrative: patient seen this am. still with sig rlq abd pain with some radiation towards right flank. WBC increased to 12. Objective Initial Vital Signs Temp Pulse Resp BP Pulse Ox 99.2 F 98 16 154/114 100 12/28/16 16:54 12/28/16 16:54 12/28/16 16:54 12/28/16 16:54 12/28/16 16:54 - General physical appearance Present: well developed - Abdomen Present: soft (positive pain on deep palpation of RLQ) - Labs 12/31/16 04:58 12/31/16 04:58 Diabetes panel 12/31/16 Range/Units 04:58 Sodium 137 (136-145) mEq/L Potassium 3.7 (3.5-4.5) mEq/L Chloride 108 (98-109) mEq/L Carbon Dioxide 27 (19-29) mEq/L BUN 10 (7-20) mg/dL Creatinine 0.78 (0.57-1.11) mg/dL Glucose 131 H (70-99) mg/dL Calcium 8.3 L (8.6-10.8) mg/dL Calcium panel 12/31/16 Range/Units 04:58 Calcium 8.3 L (8.6-10.8) mg/dL Pituitary panel 12/31/16 Range/Units 04:58 Sodium 137 (136-145) mEq/L Potassium 3.7 (3.5-4.5) mEq/L Chloride 108 (98-109) mEq/L Carbon Dioxide 27 (19-29) mEq/L BUN 10 (7-20) mg/dL Creatinine 0.78 (0.57-1.11) mg/dL Glucose 131 H (70-99) mg/dL Calcium 8.3 L (8.6-10.8) mg/dL Adrenal panel 12/31/16 Range/Units 04:58 Sodium 137 (136-145) mEq/L Potassium 3.7 (3.5-4.5) mEq/L Chloride 108 (98-109) mEq/L Carbon Dioxide 27 (19-29) mEq/L BUN 10 (7-20) mg/dL Creatinine 0.78 (0.57-1.11) mg/dL Glucose 131 H (70-99) mg/dL Calcium 8.3 L (8.6-10.8) mg/dL - VTE Documentation of Mechanical Device: Venous foot pump, device Consult Discharge Plan - Plan Referrals: NO,PCP [Primary Care Provider] -
[2016-12-31] MEDS: *HR* HYDROcodone/Acet 5/325 mg TABLET PO PRN ×3 (10:19→18:53)
--- NOTE | 2016-12-31 15:06 | Internal Med Progress Note ---
Date of Encounter: 12/31/16 Time of Encounter: 10:30 - Assessment and plan (1) RLQ abdominal pain Current Visit: Yes Status: Acute Assessment and plan: Unclear causation at this time. Initially thought it was a urinary tract infection with pyelonephritis however urine culture is negative, and stranding seen on the kidneys has improved since admission. Her pain however has worsened. She complains of severe right lower quadrant pain. No evidence of acute appendicitis. Regarding her gynecological history, she stated that she had 5 miscarriages, an ectopic , history of endometriosis, and history of . She also states that after her tubal ligation, that her menstrual cycle has been a lot heavier than usual. Her tubal ligation was [address] also revealing free fluid in pelvis which could indicate a ruptured cyst however after cyst ruptures, pain is usually abated but hers has not. We will obtain a transvaginal ultrasound to consider [employer] consultation. Continue with pain control. ITS Impressions Abdomen/Pelvis CT 12/28/16 17:16 IMPRESSION: Perinephric stranding involving the kidneys, right greater than left. There is no evidence of obstructive uropathy. Findings are nonspecific and may be related to recently passed stone although acute infection such as pyelonephritis is within the differential and limited in its evaluation on noncontrast images. D/ / 12/28/2016 18:31:25 Km Slater MD / janey Interpreting Provider: Km Slater MD Abdomen/Pelvis CT 12/31/16 07:01 IMPRESSION: Free fluid in the pelvis as well as left adnexal cyst. No evidence of acute appendicitis, diverticulitis or other acute gastrointestinal abnormality. The previously seen stranding around the kidneys has improved. D/ / 12/31/2016 08:04:43 Cheri Oglesby MD / [facility] Inter[facility] Provider: Cheri Oglesby MD (2) Hematuria Current Visit: Yes Status: Acute Assessment and plan: Urology on board. No signs of obstructive uropathy. See prior note for right lower quadrant abdominal pain Qualifiers: Hematuria type: asymptomatic microscopic Qualified Code(s): R31.21 - Asymptomatic microscopic hematuria (3) Pyelonephritis Current Visit: Yes Status: Acute Assessment and plan: Urine culture is negative. Patient's main complaint at this time is right lower quadrant pain. She denies flank pain at this time. (4) Abnormal urinalysis Current Visit: Yes Status: Ruled-out Assessment and plan: UTI ruled out, urine culture negative (5) Endometriosis Current Visit: Yes Status: Chronic (6) History of tubal ligation Current Visit: Yes Status: Chronic (7) Acute kidney injury Current Visit: Yes Status: Resolved - Subjective Interval history: Patient seen and examined. On examination, patient was ambulating back to her bed and she had just taken a shower. Patient complaining of severe right lower quadrant abdominal pain. - Constitutional Vitals: Temp Pulse Resp BP Pulse Ox 98.1 F 71 16 125/85 99 12/31/16 14:47 12/31/16 14:47 12/31/16 14:47 12/31/16 14:47 12/31/16 14:47 General appearance: Present: cooperative, A&O X 3, pleasant, no acute distress, answers questions appropriately - Head Head exam: Present: atraumatic, normocephalic - Eye Eye exam: Present: PERRL, conjuntiva pink, sclera anicteric Pupils: Present: PERRL - Neck Neck exam general surgery: Present: supple, trachea midline. Absent: lymphadenopathy - Respiratory Respiratory exam: Present: CTAB. Absent: accessory muscle use, rales, respiratory distress, rhonchi, wheezes - Cardiovascular Cardiovascular exam: Present: RRR, +S1, +S2. Absent: diastolic murmur, gallop, rubs, systolic murmur - GI/Abdominal GI/Abdominal exam: Present: normal bowel sounds, soft, tenderness (RLQ), no peritoneal signs. Absent: distended - Extremities Exam Extremities exam: Present: warm, radial pulses palpable and symetrical. Absent : calf tenderness, cyanotic, pedal edema - Neurological Exam Neurological exam: Present: alert, CN II-XII intact, normal gait, oriented X3, no focal deficits, strengths equal and symetr throughout. Absent: pronater drift, facial droop, speech deficit - Skin Skin exam: Present: dry, intact, pallor, warm Internal Medicine: Result - Labs CBC & Chem 7: 12/31/16 04:58 12/31/16 04:58 Labs: Short CBC 12/31/16 Range/Units 04:58 WBC 12.7 H (4.3-11.1) K/mcL Hgb 10.3 L (11.5-15.4) g/dL Hct 31.2 L (35.3-44.9) % Plt Count 195 (140-400) K/mcL Neutrophils # 9.0 H (1.6-8.9) K/mcL BMP 12/31/16 04:58 Sodium 137 Potassium 3.7 Chloride 108 Carbon Dioxide 27 BUN 10 Creatinine 0.78 Glucose 131 H Calcium 8.3 L - ABG Interpretation ABG results: PT/INR, D-dimer PT 11.5 Seconds (9.4-12.1) 12/28/16 17:31 - Impressions Impressions Abdomen/Pelvis CT 12/31/16 07:01 IMPRESSION: Free fluid in the pelvis as well as left adnexal cyst. No evidence of acute appendicitis, diverticulitis or other acute gastrointestinal abnormality. The previously seen stranding around the kidneys has improved. D/ / 12/31/2016 08:04:43 Cheri Oglesby MD / jacqui Interpreting Provider: Cheri Oglesby MD - VTE Documentation of Mechanical Device: Venous foot pump, device Consult Discharge Plan - Plan Referrals: NO,PCP [Primary Care Provider] -
[2017-01-01] MEDS: Sennosides/Docusate Sodium TABLET PO SCH ×2 (01:03→08:58)
[2017-01-01] MEDS: *HR* HYDROcodone/Acet 5/325 mg TABLET PO PRN ×3 (01:04→13:00)
[2017-01-01 05:29] LABS: Basophils % 0.2 %; Eosinophils # 0.1 K/mcL (0.0-0.6); Eosinophils % 1.3 %; Hematocrit 32.9 % (35.3-44.9); Hemoglobin 10.8 g/dL (11.5-15.4); Immature Granulocytes % 0.4 % (0-4); Lymphocytes # 2.8 K/mcL (0.6-4.6); Lymphocytes % 25.4 %; Mean Corpuscular HGB Conc 32.8 g/dL (31.6-35.5); Mean Corpuscular Hemoglobin 28.8 pg (28.0-33.3); Mean Corpuscular Volume 87.7 fL (83.0-100.0); Mean Platelet Volume 11.6 fL (9.4-12.4); Monocytes # 0.8 K/mcL (0.0-1.3); Monocytes % 6.9 %; Neutrophils # 7.3 K/mcL (1.6-8.9); Platelet Count 219 K/mcL (140-400); Red Blood Count 3.75 M/mcL (3.82-4.97); Red Cell Distribution Width 13.2 % (11.5-14.5); Segmented Neutrophils % 65.8 %
[2017-01-01 05:45] LABS: BUN/Creatinine Ratio 13 (6-26); Blood Urea Nitrogen 10 mg/dL (7-20); Calcium 8.7 mg/dL (8.6-10.8); Carbon Dioxide 28 mEq/L (19-29); Chloride 106 mEq/L (98-109); Glucose 106 mg/dL (70-99); Osmolality,Calculated 287 (280-300); Potassium 3.4 mEq/L (3.5-4.5); Sodium 139 mEq/L (136-145); eGFR For African Americans > 60 (> 60); eGFR For Non-African Americans > 60 (> 60)
[2017-01-01] MEDS: Ondansetron 4 MG/2 ML VIAL IVP PRN (08:58)
[2017-01-01] MEDS: *HR* HYDROmorphone (PF) 1 MG/ML SYRINGE IVP PRN (08:58)
[2017-01-01 12:03] VITALS: BP 134/82
--- NOTE | 2017-01-01 12:39 | Discharge Summary ---
Date of Encounter: 01/01/17 Time of Encounter: 09:45 - Discharge Diagnosis (1) RLQ abdominal pain Priority: Primary Status: Acute Comments: Unclear causation at this time. Initially thought it was a urinary tract infection with pyelonephritis however urine culture is negative, and stranding seen on the kidneys has improved since admission. Her pain however persisted so she had a transvaginal ultrasound that was unremarkable. Pain improved on day of discharge. Set up with new PCP- followup outpatient. (2) Hematuria Priority: Primary Status: Ruled-out Qualifiers: Hematuria type: asymptomatic microscopic Qualified Code(s): R31.21 - Asymptomatic microscopic hematuria (3) Pyelonephritis Priority: Primary Status: Ruled-out (4) Abnormal urinalysis Priority: Primary Status: Ruled-out Comments: UCX negative (5) Endometriosis Priority: Secondary Status: Chronic (6) History of tubal ligation Priority: Secondary Status: Chronic (7) Acute kidney injury Priority: Primary Status: Resolved - Discharge Medications Prescriptions: HYDROcodone/Acet 5/325 mg [Dalton 5-325 mg] 1 tab PO Q6H PRN #12 tab PRN Reason: Pain Ondansetron HCl 4 mg PO Q8H PRN #12 tablet PRN Reason: Nausea And Vomiting Home Medications: No Known Home Drugs 09/22/16 [History] HYDROcodone/Acet 5/325 mg [Dalton 5-325 mg] 1 tab PO Q6H PRN #12 tab 01/01/17 [Rx ] Ondansetron HCl 4 mg PO Q8H PRN #12 tablet 01/01/17 [Rx] Allergies/Adverse Reactions: Allergies prednisone Allergy (Verified 09/22/16 01:17) See Comments "heart goes crazy" Procedures/tests Complete & Pending: Procedures Performed prior 72 hours Category Date Time Status CT abd pelvis w iv no oral [CT] Stat Cat Scan 12/31/16 07:01 Completed US pelvis transvag dopp non ob [US] Routine Exams 12/31/16 16:25 Completed Date of admission: 12/28/16 19:07 Primary care physician: PCP NO Consults: 12/28/16 18:47 Consult to Urology [CONS] Stat Consulting Provider: Urology Dolores Reason for Consult: pyelo vs passed stone Time Notified: 18:47 Call Completed: Yes Discharging clinician: Janeen Flores Anticipated date of discharge: 01/01/17 - Patient Status Disposition: Home, Self-Care Condition: Fair Functional capacity at discharge: independent ambulation Overall status at discharge: patient is progressing back to baseline - Discharge Instructions Follow Up With: NO,PCP [Primary Care Provider] - (Please call the physician referral line at [phone] and schedule an appointment with a primary care provider in 5-7 days.) Additional Instructions: Follow-up with new primary care provider within one to 2 weeks - Diet and Activity Activity: increase activity as tolerated Diet: regular diet Hospital course: Ms. Nagy is a 36 year old female with no significant past medical history other than former tobacco abuse and current marijuana abuse. Patient presented to the emergency department chief complaint of right-sided flank pain and vomiting that began on the morning of presentation. Patient stating that she woke up because of a migraine and suddenly had a right-sided flank pain and vomiting. She also endorsed diaphoresis but did not take her temperature. Her pain had worsened throughout the day and she continued to vomit prompting her presentation to the emergency department. While in the emergency department, abdominal CT consistent with possible pyelonephritis with bilateral perinephric stranding. Patient denied dysuria, urinary frequency, or urgency. No history of renal stones. Patient denied chest pain or shortness of breath. Urinalysis abnormal. Patient was admitted to the hospitalist service for further evaluation and management. She was started on ceftriaxone for suspected urinary tract infection with possible pyelonephritis. Urology was brought on board. Repeat abdominal pelvic CT revealing improvement in her kidneys and also revealed free fluid in the pelvis. Urine culture was negative. No evidence of UTI or acute pyelonephritis and urology signed off. Other causative factors were then investigated. She has a lengthy [employer] history with history of 5 miscarriages, one ectopic , history of endometriosis , and history of a with bilateral tubal ligation 2 years ago. A transvaginal ultrasound was then performed with suspicion of possible endometriosis and or ovarian pathology however this ultrasound was also unremarkable for acute processes. Patient's back pain and flank pain had resolved and her right lower quadrant abdominal pain improved. She was able tolerate a regular diet well admitted. Her mild acute kidney injury upon presentation resolved. Patient stating that he eats she and her recently moved to [place] from [place] but plan to stay here permanently, so she was set up with a new primary care provider. Acute intra-abdominal and acute gynecological issues were ruled out and she was discharged home in stable condition with close outpatient follow-up recommended. Of note, she was sent on a short supply of ondansetron and narcotic pain medication-O[facility] report negative. ITS Impressions Abdomen/Pelvis CT 12/28/16 17:16 IMPRESSION: Perinephric stranding involving the kidneys, right greater than left. There is no evidence of obstructive uropathy. Findings are nonspecific and may be related to recently passed stone although acute infection such as pyelonephritis is within the differential and limited in its evaluation on noncontrast images. D/ / 12/28/2016 18:31:25 Km Slater MD / keri Interpreting Provider: Km Slater MD Abdomen/Pelvis CT 12/31/16 07:01 IMPRESSION: Free fluid in the pelvis as well as left adnexal cyst. No evidence of acute appendicitis, diverticulitis or other acute gastrointestinal abnormality. The previously seen stranding around the kidneys has improved. D/ / 12/31/2016 08:04:43 Cheri Oglesby MD / [facility] Inter[facility] Provider: Cheri Oglesby MD Abdomen/Pelvis/Transvag US 12/31/16 16:25 IMPRESSION: Unremarkable pelvic ultrasound. Normal Doppler flow within the ovaries. D/ / Parish Calhoun MD / Parish Calhoun MD Interpreting Provider: Parish Calhoun MD - Time Spent with Patient Total time spent providing and/or coordinating discharge services: - Constitutional Vitals: Temp Pulse Resp BP Pulse Ox 98.2 F 73 16 134/82 99 01/01/17 12:02 01/01/17 12:02 01/01/17 12:02 01/01/17 12:02 01/01/17 12:02 General appearance: Present: cooperative, A&O X 3, pleasant, no acute distress, answers questions appropriately - Head Head exam: Present: atraumatic, normocephalic - Eye Eye exam: Present: PERRL, conjuntiva pink, sclera anicteric Pupils: Present: PERRL - Neck Neck exam general surgery: Present: supple, trachea midline. Absent: lymphadenopathy - Respiratory Respiratory exam: Present: CTAB. Absent: accessory muscle use, rales, respiratory distress, rhonchi, wheezes - Cardiovascular Cardiovascular exam: Present: RRR, +S1, +S2. Absent: diastolic murmur, gallop, rubs, systolic murmur - GI/Abdominal GI/Abdominal exam: Present: normal bowel sounds, soft, tenderness (Mild right lower quadrant), no peritoneal signs. Absent: distended - Extremities Exam Extremities exam: Present: warm, radial pulses palpable and symetrical. Absent : calf tenderness, cyanotic, pedal edema - Neurological Exam Neurological exam: Present: alert, CN II-XII intact, normal gait, oriented X3, no focal deficits, strengths equal and symetr throughout. Absent: pronater drift, facial droop, speech deficit - Skin Skin exam: Present: dry, intact, normal color, warm - VTE Documentation of Mechanical Device: Venous foot pump, device
== END 2017-01-01 14:01 | disposition home or self-care (01) ==
LOC: 3BNU 16:52 → EMEROO 16:52 → SUATTDRO 19:07 → 3BNU 20:19
PROVIDERS: ADMIT Internal Medicine; ATTEND Nurse Practitioner Family